=== PATIENT | female | born 1990 | race Caucasian/White ===

== ENCOUNTER 2016-11-06 19:40 | Emergency (ER) | payer MEDICAID ==
[~2016-11-06] VITALS: Ht 162.6 cm; Wt 56.3 kg
[~2016-11-06 19:40] MED LIST: PREN-88 PO
[2016-11-06] MEDS ORDERED: CEFTRIAXONE SODIUM 250 MG/VIAL IM ONE (20:45)
[2016-11-06] MEDS ORDERED: BALANCED SALT IRRIG SOLN 15ML IO ONE (20:45)
[2016-11-06] MEDS ORDERED: AZITHROMYCIN 500 MG TABLET PO ONE (20:45)
[2016-11-06] MEDS ORDERED: FLUORESCEIN SODIUM 1MG/STRIP OP ONE (20:45)
[2016-11-06] MEDS ORDERED: TETRACAINE 0.5% OPHTH DROPS 4ML OP ONE (20:45)
[2016-11-06] MEDS ORDERED: LIDOCAINE HCL 1% 20ML VIAL (Pyxis) INJ MC ONE (21:15)
[2016-11-06 21:21] LABS: HCG SCREEN NEGATIVE
[2016-11-06 21:54] VITALS: BP 115/79
== END 2016-11-06 21:55 | disposition home or self-care (01) ==
LOC: ER 20:59
DX: T74.21XA Adult sexual abuse, confirmed, initial encounter (principal); H10.13 Acute atopic conjunctivitis, bilateral; Y93.89 Activity, other specified; Y92.89 Other specified places as the place of occurrence of the external cause
CPT/HCPCS: 84703; 96372; 99283; J0696; J3490

== ENCOUNTER 2017-02-12 00:03 | Emergency (ER) | payer MEDICAID ==
[~2017-02-12] VITALS: Ht 162.6 cm; Wt 59.0 kg
[2017-02-12 00:38] VITALS: BP 142/80
== END 2017-02-12 05:30 | disposition left against medical advice (07) ==
LOC: ER 05:26
DX: Z53.21 Procedure and treatment not carried out due to patient leaving prior to being seen by health care provider (principal)

== ENCOUNTER 2017-04-22 12:19 | Emergency (ER) | payer MEDICAID ==
[~2017-04-22] VITALS: Ht 160 cm; Wt 60.0 kg
[2017-04-22 12:22] VITALS: BP 113/68
== END 2017-04-22 18:12 | disposition left against medical advice (07) ==
LOC: ER 15:26
DX: Z53.21 Procedure and treatment not carried out due to patient leaving prior to being seen by health care provider (principal)

== ENCOUNTER 2020-04-29 00:28 | Emergency (ER) | payer MEDICAID ==
[~2020-04-29] VITALS: Ht 162.6 cm; Wt 59.2 kg
[2020-04-29 01:45] LABS: BASOPHILS % 0.9 % (0.0-2.0); EOSINOPHILS % 2.2 % (0.0-5.0); HEMATOCRIT. 25.9 % (36.0-48.0); HEMOGLOBIN. 7.8 g/dL (12.0-16.0); LYMPHOCYTES % 47.3 % (20.0-50.0); MEAN CORPUSCULAR HEMOGLOBIN 19.4 pg (28.0-32.0); MEAN CORPUSCULAR VOLUME 64.4 fL (81.0-99.0); MEAN PLATELET VOLUME 8.5 fl (7.4-10.4); MONOCYTES % 8.8 % (2.0-8.0); NEUTROPHILS % 40.8 % (40.0-76.0); PLATELET 268 x1000/uL (130-400); RED BLOOD CELL COUNT 4.03 mill/uL (4.2-5.4); RED CELL DISTRIBUTION WIDTH 19.1 % (11.6-14.6)
[2020-04-29 01:50] LABS: CHLORIDE 103 mEq/L (98-107)
[2020-04-29 01:54] LABS: ETHANOL BLOOD < 10 mg/dL
[2020-04-29 02:12] LABS: CLARITY URINE CLOUDY (CLEAR); COLOR URINE YELLOW (YELLOW); KETONES URINE NEGATIVE (NEGATIVE); LEUKOCYTE ESTERASE URINE 1+ (NEGATIVE); NITRITE URINE NEGATIVE (NEGATIVE); OCCULT BLOOD URINE NEGATIVE (NEGATIVE); PH URINE 5.5 (4.5-8.0); PROTEIN URINE TRACE (NEGATIVE); SPECIFIC GRAVITY URINE 1.035 (1.005-1.030)
[2020-04-29 02:24] LABS: *BARBITURATES SCREEN URINE NEGATIVE (NEGATIVE); *BENZODIAZEPINES SCREEN URINE NEGATIVE (NEGATIVE); *COCAINE SCREEN URINE NEGATIVE (NEGATIVE); CANNABINOID URINE SCREEN NEGATIVE (NEGATIVE); METHADONE URINE SCREEN NEGATIVE (NEGATIVE); PHENCYCLIDINE URINE SCREEN NEGATIVE (NEGATIVE)
[2020-04-29 02:28] LABS: *AMPHETAMINES SCREEN URINE PRESUMTIVE POSITIVE (NEGATIVE); OPIATES URINE SCREEN PRESUMTIVE POSITIVE (NEGATIVE)
[2020-04-29 07:47] LABS: PLATELET ESTIMATE NORMAL
[2020-04-29] MEDS ORDERED: OLANZAPINE 10 MG/VIAL IM ONE (12:15)
[2020-04-29] MEDS ORDERED: OLANZAPINE 10 MG/VIAL IM NR (12:15)
[2020-04-29] MEDS ORDERED: LORAZEPAM 2MG/ML CPJ IM ONE (12:15)
[2020-04-30 02:50] VITALS: BP 106/63
[2020-04-30] MEDS ORDERED: NITROFURANTOIN 100MG M/M CAPSULE PO SCH (09:00)
[2020-04-30] MEDS ORDERED: LORAZEPAM 1MG TABLET PO ONE (12:45)
== END 2020-04-30 15:01 | disposition left against medical advice (07) ==
LOC: ER 00:28
DX: Z03.818 Encounter for observation for suspected exposure to other biological agents ruled out (principal); R45.851 Suicidal ideations; F11.129 Opioid abuse with intoxication, unspecified; F15.129 Other stimulant abuse with intoxication, unspecified; N30.90 Cystitis, unspecified without hematuria; F20.9 Schizophrenia, unspecified; F31.9 Bipolar disorder, unspecified; Z86.59 Personal history of other mental and behavioral disorders
CPT/HCPCS: 36415; 80053; 80305; 80307; 80320; 80329; 81003; 81025; 85025; 87086; 87426; 93005; 96372; 99285; J2060; J3490; G0480